=== PATIENT | male | born 1945 | race Caucasian/White ===

== ENCOUNTER 2017-04-14 12:21 | Day surgery (SDC) | payer OTHER, BC ==
[2017-04-14 13:07] VITALS: BMI 36.8
[2017-04-14] MEDS ORDERED: PROPOFOL 20 ML ONE ×2 (13:11)
[2017-04-14 14:39] VITALS: TEMP 98.1
[2017-04-14 15:48] VITALS: BP 105/63; PULSE 82
--- NOTE | 2017-04-16 11:35 | PATH ---
Surgical Pathology Report Patient Name: RENEE ANDINO [facility]. Rec. #: [id number] /Age/Gender: 1945 (Age: 71) / M Account: [id number] Location: [facility]-ENDOSCOPY Taken: 04/14/2017 Received: 04/15/2017 Reported: 04/16/2017 Physicians: Elier Garcia M.D. Specimen(s) Received A: POLYP FROM DESCENDING COLON B: BX POLYPS TRANSVERSE COLON C: POLYP FROM HEPATIC FLEXURE D: POLYP FROM ASCENDING COLON Clinical History Preoperative diagnosis: Screening neoplasm Postoperative diagnosis: Colon polyps, redundant colon Final Diagnosis A. COLON, DESCENDING, POLYPECTOMY: MULTIPLE PORTIONS OF TUBULAR ADENOMA, AND HYPERPLASTIC POLYP. B. COLON, TRANSVERSE, POLYPECTOMY: MULTIPLE PORTIONS OF TUBULAR ADENOMA. C. COLON, HEPATIC FLEXURE, POLYPECTOMY: TUBULAR ADENOMA. D. COLON, ASCENDING, POLYPECTOMY: MULTIPLE PORTIONS OF TUBULAR ADENOMA. Comment: Recommend correlation with clinical findings and follow up as clinically indicated. Electronically Signed Johann Blount M.D. Gross Description A. Received in formalin, labeled "polyps from descending colon" are 8 argueta, irregular to polypoid portions of soft tissue ranging from 0.2-0.4 cm. in greatest dimension. The specimens are submitted in toto in one cassette. B. Received in formalin, labeled "polyps transverse colon" are 6 argueta, irregular portions of soft tissue ranging from 0.2-0.4 cm. in greatest dimension. The specimens are submitted in toto in one cassette. C. Received in formalin, labeled "polyp from hepatic flexure" is a argueta, polypoid portion of soft tissue measuring 0.5 cm. in greatest dimension. The specimen is submitted in toto in one cassette. D. Received in formalin, labeled "polyps from ascending colon" are 5 argueta, irregular portions of soft tissue ranging from 0.2-0.4 cm. in greatest dimension. The specimens are submitted in toto in one cassette. 04/15/201704/15/2017
== END 2017-04-14 15:51 | disposition home or self-care (01) ==
LOC: JASU-ENDO 12:21
PROVIDERS: ATTEND Internal Medicine Gastroenterology
PROC: 0DBE8ZX Excision of Large Intestine, Via Natural or Artificial Opening Endoscopic, Diagnostic (ICD-10-PCS; 2017-04-14)
PROC: 0DBM8ZX Excision of Descending Colon, Via Natural or Artificial Opening Endoscopic, Diagnostic (ICD-10-PCS; 2017-04-14)
PROC: 0DBE8ZX Excision of Large Intestine, Via Natural or Artificial Opening Endoscopic, Diagnostic (ICD-10-PCS; 2017-04-14)
PROC: 0DBK8ZX Excision of Ascending Colon, Via Natural or Artificial Opening Endoscopic, Diagnostic (ICD-10-PCS; principal; 2017-04-14 13:00)
DX: Z12.11 Encounter for screening for malignant neoplasm of colon (principal); D12.2 Benign neoplasm of ascending colon; D12.3 Benign neoplasm of transverse colon; K64.8 Other hemorrhoids; K63.89 Other specified diseases of intestine
CPT/HCPCS: 88305-TC

== ENCOUNTER 2021-06-28 15:46 | Emergency (ER) | payer OTHER, BC ==
[2021-06-28] MEDS ORDERED: ASPIRIN 81 MG CHEWABLE TABLETS ONE (16:10)
[2021-06-28] MEDS ORDERED: TICAGRELOR 90 MG TABLET PO ONE (16:16)
[2021-06-28] MEDS ORDERED: ASPIRIN 325 MG TABLET PO ONE (16:16)
[2021-06-28] MEDS ORDERED: HEPARIN NA (PORCINE) 5,000 UNITS/ML 1ML VIAL ONE (16:16)
[2021-06-28] MEDS ORDERED: HEPARIN NA (PORCINE) 5,000 UNITS/ML 1ML VIAL IVPUSH PRN ×2 (16:16)
[2021-06-28] MEDS ORDERED: HEPARIN INFUSION - 25,000 UNITS/500 ML INFUS.BAG IVPB SCH (16:30)
[2021-06-28] MEDS ORDERED: NOREPINEPHRINE BITARTRATE 4 MG/4 ML ML IV ONE (16:31)
[2021-06-28 16:33] LABS: BASO % 0.4 % (0-2.0); EOS % 2.4 % (0-4.5); HEMATOCRIT 46.6 % (35.4-49); HEMOGLOBIN 15.1 GM/dL (11.7-16.9); LYMPH % 24.4 % (8-40); MCH 30.3 pg (25.7-33.7); MCHC 32.3 g/dl (32.0-35.9); MEAN CELL VOLUME 93.9 fl (80-96); MEAN PLT VOLUME 9.6 fl (7.5-11.1); MONO % 4.7 % (3.8-10.2); NEUT % 68.1 % (42.8-82.8); PLATELET COUNT 332 10^3/uL (134-434); RBC 4.96 M/mm3 (4.00-5.60); RDW 13.6 % (11.9-15.9); WHITE BLOOD COUNT 22.8 K/mm3 (4.0-10.0)
[2021-06-28 16:34] VITALS: BMI 34.7
[2021-06-28 16:40] LABS: INR 1.03 (0.83-1.09); PROTHROMBIN TIME (PATIENT) 11.9 SEC (9.7-13.0)
[2021-06-28] MEDS ORDERED: methylPREDNISolone NA SUCC 125 MG/2 ML VIAL ONE (16:40)
[2021-06-28 16:42] LABS: ACTIVATED PTT 22.2 SECONDS (25.2-36.5)
[2021-06-28] MEDS ORDERED: NOREPINEPHRINE D5W PREMIX 16,000 MCG/500 ML BAG IVPB SCH (16:45)
[2021-06-28] MEDS ORDERED: FAMOTIDINE 20 MG/50 ML IVPB 20 MG/50 ML MG IVPB ONE (16:52)
[2021-06-28 16:54] LABS: BLOOD UREA NITROGEN 24.2 mg/dL (7-18)
[2021-06-28 16:57] LABS: CREATININE 2.1 mg/dL (0.55-1.3)
[2021-06-28 16:59] LABS: BILIRUBIN,TOTAL 0.7 mg/dL (0.2-1); TOT PROT 6.3 g/dl (6.4-8.2)
[2021-06-28 17:13] VITALS: BP 77/40; PULSE 90; TEMP 98
[2021-06-28 17:39] LABS: ANISOCYTOSIS 1+; MACROCYTOSIS 0; PLATELET ESTIMATE NORMAL
[2021-06-28] MEDS ORDERED: TICAGRELOR 60 MG TABLET PO SCH (22:00)
== END 2021-06-28 17:00 | disposition short-term general hospital (02) ==
LOC: JER 15:46
PROC: 3E033NZ Introduction of Analgesics, Hypnotics, Sedatives into Peripheral Vein, Percutaneous Approach (ICD-10-PCS; principal; 2021-06-28)
DX: R11.2 Nausea with vomiting, unspecified (principal)
CPT/HCPCS: 36415; 80053; 82550; 84484; 85025; 85610; 85730; 93005; 93010; 96374; 99284-25; J1644

== ENCOUNTER 2022-02-20 04:18 | Day surgery (SDC) | payer OTHER, BC ==
[2022-02-19 12:23] VITALS: BMI 34.2
[~2022-02-20 04:18] MED LIST: BUPIVACAINE HCL/PF 0.75% 10 ML VIAL PNB ONE; IOHEXOL 180 MG/1 ML ML IJ ONE; LIDOCAINE 1% P/F 10 MG/ML VIAL PNB ONE
[2022-02-20] MEDS ORDERED: LIDOCAINE HCL/PF 1% SDV 5ML VIAL ONE (07:32)
[2022-02-20] MEDS ORDERED: BUPIVACAINE HCL/PF 0.75% 10 ML VIAL ONE (07:32)
[2022-02-20] MEDS ORDERED: BUPIVACAINE HCL/PF 0.75% 10 ML VIAL PNB ONE (09:56)
[2022-02-20] MEDS ORDERED: LIDOCAINE 1% P/F 10 MG/ML VIAL PNB ONE (09:56)
[2022-02-20 10:25] VITALS: RESP 20
[2022-02-20 11:45] VITALS: BP 136/88; PULSE 88; TEMP 98
== END 2022-02-20 10:50 | disposition home or self-care (01) ==
LOC: JASU-SURG 04:18
PROVIDERS: ATTEND Pain Medicine Pain Medicine
PROC: BR16YZZ Fluoroscopy of Lumbar Facet Joint(s) using Other Contrast (ICD-10-PCS; 2022-02-20)
PROC: 3E0T3BZ Introduction of Anesthetic Agent into Peripheral Nerves and Plexi, Percutaneous Approach (ICD-10-PCS; principal; 2022-02-20 09:15)
DX: M47.816 Spondylosis without myelopathy or radiculopathy, lumbar region (principal)
CPT/HCPCS: 76000-TC-FY

== ENCOUNTER 2022-03-31 04:23 | Day surgery (SDC) | payer OTHER, BC ==
[2022-03-27 13:01] VITALS: BMI 34.4
[2022-03-31] MEDS ORDERED: LIDOCAINE HCL/PF 1% SDV 5ML VIAL ONE (07:29)
[2022-03-31] MEDS ORDERED: BUPIVACAINE HCL/PF 0.75% 10 ML VIAL ONE (07:29)
[2022-03-31] MEDS ORDERED: BUPIVACAINE HCL/PF 0.75% 10 ML VIAL PNB ONE ×2 (09:51→09:57)
[2022-03-31] MEDS ORDERED: LIDOCAINE HCL 1% PRESERVATIVE FREE - 30ML VIAL IJ ONE ×2 (09:51→09:57)
[2022-03-31 10:47] VITALS: RESP 16
[2022-03-31 11:41] VITALS: BP 108/64; PULSE 90; TEMP 96.6
== END 2022-03-31 11:40 | disposition home or self-care (01) ==
LOC: JASU-SURG 04:23
PROVIDERS: ATTEND Pain Medicine Pain Medicine
PROC: 3E0T33Z Introduction of Anti-inflammatory into Peripheral Nerves and Plexi, Percutaneous Approach (ICD-10-PCS; 2022-03-31)
PROC: 3E0T3BZ Introduction of Anesthetic Agent into Peripheral Nerves and Plexi, Percutaneous Approach (ICD-10-PCS; principal; 2022-03-31 09:57)
DX: M47.816 Spondylosis without myelopathy or radiculopathy, lumbar region (principal)
CPT/HCPCS: 76000-TC-FY

== ENCOUNTER 2022-05-08 04:14 | Day surgery (SDC) | payer OTHER, BC ==
[2022-05-05 17:46] VITALS: BMI 34.4
[2022-05-08] MEDS ORDERED: BUPIVACAINE HCL/PF 0.75% 10 ML VIAL ONE (07:26)
[2022-05-08] MEDS ORDERED: LIDOCAINE HCL/PF 2% SDV 5ML VIAL ONE (07:26)
[2022-05-08] MEDS ORDERED: LIDOCAINE HCL/PF 1% SDV 5ML VIAL ONE (07:27)
[2022-05-08] MEDS ORDERED: DEXAMETHASONE SOD PHOSPHATE 10 MG/1 ML VIAL ONE (07:27)
[2022-05-08 07:43] VITALS: RESP 20
[2022-05-08] MEDS ORDERED: BUPIVACAINE HCL/PF 0.75% 10 ML VIAL NR ONE ×2 (09:00)
[2022-05-08] MEDS ORDERED: DEXAMETHASONE SOD PHOSPHATE 10 MG/1 ML VIAL IVPUSH ONE (09:01)
[2022-05-08] MEDS ORDERED: LIDOCAINE HCL 1%, 10 MG/ML (50 mL VIAL) NR ONE (09:01)
[2022-05-08] MEDS ORDERED: LIDOCAINE HCL/PF 2% SDV 5ML VIAL INF ONE (09:02)
[2022-05-08 09:49] VITALS: BP 112/70; PULSE 83; TEMP 98.1
== END 2022-05-08 10:45 | disposition home or self-care (01) ==
LOC: JASU-SURG 04:14
PROVIDERS: ATTEND Pain Medicine Pain Medicine
PROC: 3E0T3TZ Introduction of Destructive Agent into Peripheral Nerves and Plexi, Percutaneous Approach (ICD-10-PCS; principal; 2022-05-08 09:00)
DX: M47.816 Spondylosis without myelopathy or radiculopathy, lumbar region (principal)
CPT/HCPCS: 76000-TC-FY; J1100

== ENCOUNTER 2022-05-26 04:55 | Day surgery (SDC) | payer OTHER, BC ==
[2022-05-21 17:30] VITALS: BMI 34.4
[~2022-05-26 04:55] MED LIST changes: +BUPIVACAINE HCL/PF 0.75% 10 ML VIAL NR ONE; -BUPIVACAINE HCL/PF 0.75% 10 ML VIAL PNB ONE; +DEXAMETHASONE SOD PHOSPHATE 10 MG/1 ML VIAL IM ONE; -IOHEXOL 180 MG/1 ML ML IJ ONE; -LIDOCAINE 1% P/F 10 MG/ML VIAL PNB ONE; +LIDOCAINE HCL 1% PRESERVATIVE FREE - 30ML VIAL IJ ONE; +LIDOCAINE HCL/PF 2% SDV 5ML VIAL INF ONE
[2022-05-26] MEDS ORDERED: BUPIVACAINE HCL/PF 0.75% 10 ML VIAL ONE (07:19)
[2022-05-26] MEDS ORDERED: LIDOCAINE HCL/PF 1% SDV 5ML VIAL ONE (07:19)
[2022-05-26] MEDS ORDERED: LIDOCAINE HCL/PF 2% SDV 5ML VIAL ONE (07:19)
[2022-05-26] MEDS ORDERED: DEXAMETHASONE SOD PHOSPHATE 10 MG/1 ML VIAL ONE (07:35)
[2022-05-26 10:47] VITALS: RESP 18
[2022-05-26] MEDS ORDERED: LIDOCAINE HCL 1% PRESERVATIVE FREE - 30ML VIAL IJ ONE (12:59)
[2022-05-26] MEDS ORDERED: LIDOCAINE HCL/PF 2% SDV 5ML VIAL INF ONE (13:23)
[2022-05-26] MEDS ORDERED: BUPIVACAINE HCL/PF 0.75% 10 ML VIAL NR ONE (13:29)
[2022-05-26] MEDS ORDERED: DEXAMETHASONE SOD PHOSPHATE 10 MG/1 ML VIAL IM ONE (13:29)
[2022-05-26 13:59] VITALS: BP 116/79; PULSE 89; TEMP 98.8
== END 2022-05-26 14:03 | disposition home or self-care (01) ==
LOC: JASU-SURG 04:55
PROVIDERS: ATTEND Pain Medicine Pain Medicine
PROC: 005Y3ZZ Destruction of Lumbar Spinal Cord, Percutaneous Approach (ICD-10-PCS; principal; 2022-05-26 12:00)
DX: M47.816 Spondylosis without myelopathy or radiculopathy, lumbar region (principal)
CPT/HCPCS: 76000-TC-FY; J1100

== ENCOUNTER 2022-07-10 04:17 | Day surgery (SDC) | payer OTHER, BC ==
[2022-07-08 13:27] VITALS: BMI 34.4
[2022-07-10] MEDS ORDERED: DEXAMETHASONE SOD PHOSPHATE 10 MG/1 ML VIAL ONE ×2 (07:37→11:37)
[2022-07-10] MEDS ORDERED: DEXAMETHASONE SOD PHOSPHATE 4 MG/1 ML VIAL ONE (07:37)
[2022-07-10] MEDS ORDERED: LIDOCAINE HCL/PF 1% SDV 5ML VIAL ONE (07:37)
[2022-07-10] MEDS ORDERED: LIDOCAINE 1% P/F 10 MG/ML VIAL PNB ONE (12:10)
[2022-07-10] MEDS ORDERED: DEXAMETHASONE SOD PHOSPHATE 10 MG/1 ML VIAL IVPUSH ONE (12:10)
[2022-07-10 12:49] VITALS: BP 138/82; PULSE 85; RESP 20; TEMP 97.2
== END 2022-07-10 12:40 | disposition home or self-care (01) ==
LOC: JASU-SURG 04:17
PROVIDERS: ATTEND Pain Medicine Pain Medicine
PROC: 3E0R3BZ Introduction of Anesthetic Agent into Spinal Canal, Percutaneous Approach (ICD-10-PCS; 2022-07-10)
PROC: 3E0R33Z Introduction of Anti-inflammatory into Spinal Canal, Percutaneous Approach (ICD-10-PCS; principal; 2022-07-10 12:15)
DX: M48.061 Spinal stenosis, lumbar region without neurogenic claudication (principal); M54.16 Radiculopathy, lumbar region
CPT/HCPCS: 76000-TC-FY; J1100

== ENCOUNTER 2022-11-08 19:18 | Emergency (ER) | payer OTHER, BC ==
[2022-11-08 19:24] VITALS: BP 135/81; PULSE 89; RESP 17; TEMP 98.2; BMI 33.0
[2022-11-08 20:32] LABS: EOS % 3.9 % (0-4.5); HEMATOCRIT 40.4 % (35.4-49); HEMOGLOBIN 13.3 GM/dL (11.7-16.9); LYMPH % 12.9 % (8-40); MCH 29.6 pg (25.7-33.7); MEAN CELL VOLUME 89.9 fl (80-96); MEAN PLT VOLUME 9.2 fl (7.5-11.1); MONO % 6.5 % (3.8-10.2); NEUT % 75.7 % (42.8-82.8); PLATELET COUNT 283 10^3/uL (134-434); RDW 13.6 % (11.9-15.9); WHITE BLOOD COUNT 10.4 K/mm3 (4.0-10.0)
[2022-11-08 20:38] LABS: INR 1.08 (0.83-1.09); PROTHROMBIN TIME (PATIENT) 12.5 SEC (9.7-13.0)
[2022-11-08 20:41] LABS: ACTIVATED PTT 28.7 SECONDS (25.2-36.5)
[2022-11-08 20:51] LABS: POTASSIUM 4.4 mmol/L (3.5-5.1)
[2022-11-08 20:53] LABS: CALCIUM 8.9 mg/dL (8.5-10.1)
[2022-11-08 20:54] LABS: ALBUMIN 3.7 g/dl (3.4-5.0); BLOOD UREA NITROGEN 11.6 mg/dL (7-18); MAGNESIUM 1.7 mg/dL (1.8-2.4)
[2022-11-08 20:57] LABS: CREATININE 1.5 mg/dL (0.55-1.3); PHOSPHOROUS 2.9 mg/dL (2.5-4.9)
[2022-11-08 20:58] LABS: BILIRUBIN,TOTAL 1.1 mg/dL (0.2-1); TOT PROT 7.2 g/dl (6.4-8.2)
== END 2022-11-08 23:33 | disposition home or self-care (01) ==
LOC: JER 19:18
DX: R42 Dizziness and giddiness (principal); R55 Syncope and collapse; R61 Generalized hyperhidrosis; K59.00 Constipation, unspecified; R19.7 Diarrhea, unspecified
CPT/HCPCS: 36415; 71046-TC-FY; 80053; 83735; 84100; 84484; 85025; 85610; 85730; 93005; 93010; 99285-25

== ENCOUNTER 2022-12-18 05:04 | Day surgery (SDC) | payer OTHER, BC ==
[2022-12-15 11:44] VITALS: BMI 33.4
[2022-12-18 07:39] VITALS: RESP 18
[2022-12-18] MEDS ORDERED: BUPIVACAINE HCL/PF 0.5% (5MG/ML) 10 ML VIAL ONE (07:53)
[2022-12-18] MEDS ORDERED: BUPIVACAINE HCL/PF 0.5% (5 MG/ML) 30 ML VIAL IJ ONE (09:26)
[2022-12-18] MEDS ORDERED: BUPIVACAINE HCL/PF 0.5% (5MG/ML) 10 ML VIAL IJ ONE (09:45)
[2022-12-18 11:05] VITALS: BP 133/80; PULSE 66; TEMP 98.5
[2022-12-18] MEDS ORDERED: ACETAMINOPHEN 500 MG TABLET (FP) PO PRN (17:47)
== END 2022-12-18 10:10 | disposition home or self-care (01) ==
LOC: JASU-SURG 05:04
PROVIDERS: ATTEND Pain Medicine Pain Medicine
PROC: 3E0T33Z Introduction of Anti-inflammatory into Peripheral Nerves and Plexi, Percutaneous Approach (ICD-10-PCS; 2022-12-18)
PROC: 3E0T3BZ Introduction of Anesthetic Agent into Peripheral Nerves and Plexi, Percutaneous Approach (ICD-10-PCS; principal; 2022-12-18 09:15)
DX: M47.812 Spondylosis without myelopathy or radiculopathy, cervical region (principal)
CPT/HCPCS: 76000-TC-FY

== ENCOUNTER 2024-05-29 22:38 | Emergency (ER) | payer OTHER, BC ==
[2024-05-29 22:42] VITALS: TEMP 98.6; BMI 33.0
[2024-05-29 23:43] LABS: BASO % 1.2 % (0-2.0); HEMATOCRIT 41.2 % (35.4-49); HEMOGLOBIN 13.9 GM/dL (11.7-16.9); LYMPH % 20.3 % (8-40); MCH 30.5 pg (25.7-33.7); MCHC 33.7 g/dl (32.0-35.9); MEAN CELL VOLUME 90.4 fl (80-96); MEAN PLT VOLUME 8.6 fl (7.5-11.1); MONO % 9.3 % (3.8-10.2); NEUT % 60.2 % (42.8-82.8); PLATELET COUNT 340 10^3/uL (134-434); RBC 4.56 M/mm3 (4.00-5.60); RDW 13.5 % (11.9-15.9)
[2024-05-29 23:57] LABS: POTASSIUM 5.6 mmol/L (3.5-5.1)
[2024-05-29 23:59] LABS: CALCIUM 9.5 mg/dL (8.5-10.1)
[2024-05-30] LABS: BLOOD UREA NITROGEN 16.4 mg/dL (7-18)
[2024-05-30 00:01] LABS: ALBUMIN 3.7 g/dl (3.4-5.0)
[2024-05-30 00:03] LABS: CREATININE 1.3 mg/dL (0.55-1.3)
[2024-05-30 00:04] LABS: BILIRUBIN,TOTAL 0.8 mg/dL (0.2-1); TOT PROT 8.2 g/dl (6.4-8.2)
[2024-05-30 00:43] VITALS: PULSE 101
[2024-05-30 01:12] LABS: POTASSIUM 4.8 mmol/L (3.5-5.1)
[2024-05-30 01:14] LABS: CALCIUM 9.4 mg/dL (8.5-10.1)
[2024-05-30 01:18] LABS: CREATININE 1.1 mg/dL (0.55-1.3)
[2024-05-30 01:38] VITALS: BP 152/92; RESP 20
== END 2024-05-30 01:39 | disposition home or self-care (01) ==
LOC: JER 22:38
DX: I10 Essential (primary) hypertension (principal)
CPT/HCPCS: 36415; 80048; 80053; 84443; 84484; 85025; 93005; 93010; 99284-25